=== PATIENT | male | born 1960 | race Caucasian/White ===

== ENCOUNTER 2019-01-16 20:53 | Emergency (ER) | payer MEDICAID ==
[~2019-01-16] VITALS: Ht 177.8 cm; Wt 90.7 kg
[2019-01-16 20:56] VITALS: BP_SYST 154
--- NOTE | 2019-01-16 21:01 | NUR ---
Placed in room 02 . Placed on environmental monitoring technician, blood pressure machine and pulse oximeter. To gown for exam. Side rails up. Report given to Santi REZA.
--- NOTE | 2019-01-16 21:05 | NUR ---
Patient to ER via triage for evaluation of CP that is worse with activity, patient reports that pain has been on going for about a year. Patient had EKG done in triage, showing sinus tachycardia. Patient is awake, alert and oriented in no acute distress, BP elevated and HR slightly elevated, vital signs otherwise stable, respirations even and unlabored, skin warm and dry to touch. Patient placed on veneer cutter, pulse oximeter and pulse oximeter. Awaiting evaluation by ER MD, will continue to observe and assess. IV started and blood specimens obtained and sent to lab. No s/s infiltration noted.
--- NOTE | 2019-01-16 21:20 | NUR ---
ER at bedside examining patient.
[2019-01-16] MEDS ORDERED: ASPIRIN 81 MG TAB.CHEW PO ONE (21:30)
[2019-01-16 21:39] LABS: BASOPHILS # (AUTO) 0.1 K/uL (0.0-0.2); BASOPHILS % (AUTO) 0.7 % (0.0-2.0); CALCIUM 9.3 mg/dL (8.4-11.0); CREATININE 1.12 mg/dL (0.55-1.30); EOSINOPHILS # (AUTO) 0.2 K/uL (0.0-0.4); EOSINOPHILS % (AUTO) 1.7 % (0.0-4.0); HEMATOCRIT 47.7 % (36-54); HEMOGLOBIN 16.3 g/dL (14.0-18.0); LYMPHOCYTES # (AUTO) 2.2 K/uL (1.0-5.5); LYMPHOCYTES % (AUTO) 23.1 % (20.5-51.5); MEAN CORPUSCULAR HEMOGLOBIN 31 pg (27-31); MEAN CORPUSCULAR HGB CONC 34 % (32-36); MEAN CORPUSCULAR VOLUME 91 fL (79.0-98.0); MONOCYTES # (AUTO) 0.4 K/uL (0.0-1.0); MONOCYTES % (AUTO) 4.6 % (1.7-9.3); NEUTROPHILS # (AUTO) 6.7 K/uL (1.8-7.7); NEUTROPHILS % (AUTO) 69.9 % (40.0-70.0); PLATELET COUNT (AUTO) 311 K/uL (130-430); POTASSIUM 3.3 mmol/L (3.5-5.1); RED BLOOD CELL COUNT(AUTO) 5.23 MIL/uL (4.2-6.2); RED CELL DISTRIBUTION WIDTH 13.6 % (9.0-15.0); WHITE BLOOD COUNT (AUTO) 9.6 K/uL (4.8-10.8)
[2019-01-16 21:44] LABS: ALBUMIN 4.2 g/dL (3.4-4.8); TOTAL BILIRUBIN 0.7 mg/dL (0.0-1.0)
--- NOTE | 2019-01-16 21:48 | NUR ---
Radiology at bedside for PCXR. Patient resting quietly in no acute distress, awaiting dispo.
--- NOTE | 2019-01-16 21:48 | NUR ---
Portable X Ray bedside, pt stable
--- NOTE | 2019-01-16 21:56 | NUR ---
Dr Brown at bedside speaking with patient regarding results and plan of care, questions answered by Dr Brown.
[2019-01-16 22:10] VITALS: BP_SYST 140
--- NOTE | 2019-01-16 22:10 | NUR ---
Patient given written and verbal discharge instructions and verbalizes understanding. ER MD discussed with patient the results and treatment provided. Patient in stable condition. ID arm band removed. IV catheter removed intact and dressing applied, no active bleeding. No RX given. Patient educated on pain management and to follow up with PMD. Pain Scale 0. Opportunity for questions provided and answered. Medication side effect fact sheet provided. Patient left ER in no acute distress, able to ambulate without difficulty with slow, steady gait. No adverse reaction noted to medication.
== END 2019-01-16 22:10 | disposition home or self-care (01) ==
LOC: SED 20:53
DX: R07.89 Other chest pain (principal); R03.0 Elevated blood-pressure reading, without diagnosis of hypertension
CPT/HCPCS: 36415; 71045; 80053; 84484; 85025; 93005; 99284